=== PATIENT | male | born 2005 | race Caucasian/White ===

== ENCOUNTER 2024-09-09 00:58 | Inpatient (IN) ==
[2024-09-09 01:25] LABS: Basophils # (auto) 0.04 K/uL (0.00-0.20); Basophils % (auto) 0.5 %; Eosinophils # (auto) 0.09 K/uL (0.00-0.50); Eosinophils % (auto) 1.2 %; Hematocrit (blood only) 43.4 % (42.0-52.0); Hemoglobin 15.6 g/dl (14.0-18.0); Immature Granulocytes # (auto) 0.02 K/uL (0.01-0.20); Immature Granulocytes % (auto) 0.3 %; Lymphocytes # (auto) 1.81 K/uL (1.20-3.40); Mean Corpuscular Hemoglobin 29.9 pg (25.0-34.0); Mean Corpuscular Hgb Conc 35.9 g/dL (32.0-36.0); Mean Corpuscular Volume 83.3 fL (80.0-100.0); Mean Platelet Volume 10.2 fL (9.4-12.4); Monocytes # (auto) 0.35 K/uL (0.11-0.59); Monocytes % (auto) 4.6 %; Neutrophils # (auto) 5.23 K/uL (1.40-6.50); Neutrophils % (auto) 69.4 %; Platelet Count 275 K/uL (130-400); RDW Coefficient of Variation 11.4 % (11.5-14.5); RDW Standard Deviation 34.5 fL (36.4-46.3); Red Blood Count 5.21 M/uL (4.70-6.10); White Blood Count 7.54 K/ul (4.8-10.8)
[2024-09-09 01:41] LABS: Albumin Globulin Ratio 1.6 (0.9-2); BUN Creatinine Ratio 13.3 (10-20); Bilirubin,Total 1.3 mg/dl (0.2-1.0); Calcium 9.7 mg/dl (8.6-10.3); Creatinine Clr Calc Pharmacy 88.3 ml/min; Globulin 3.1 gm/dl (2.5-4.0); Potassium 3.4 mmol/L (3.5-5.1); Total Protein 8.1 gm/dl (6.0-8.3)
[2024-09-09 01:43] LABS: Appearance Urine Clear (Clear); Bilirubin Urine Negative (Negative); Blood Urine Negative (Negative); Color Urine Yellow; Glucose Urine UA Negative (Negative); Ketones Urine 2+ (Negative); Leukocyte Esterase Urine Negative (Negative); Nitrite Urine Negative (Negative); Protein Urine Negative (Negative); Specific Gravity Urine 1.016 (1.000-1.030); Urobilinogen Urine Negative (Negative); pH Urine 5.5 (4.5-7.5)
[2024-09-09 01:56] LABS: Thyroid Stimulating Hormone 1.483 uIu/ml (0.300-4.500)
[2024-09-09 02:01] LABS: Acetaminophen < 3 ug/ml (10-30); Amphetamines+Metham, Urine Neg (Neg); Barbiturates, Urine Neg (Neg); Benzodiazepine, Urine Neg (Neg); Cocaine, Urine Neg (Neg); Fentanyl, Urine Neg (Neg); MDMA (Ecstacy), Urine Neg (Neg); Marijuana, Urine Pos (Neg); Methadone, Urine Neg (Neg); Opiate, Urine Neg (Neg); Phencyclidine, Urine Neg (Neg); Salicylate < 3.0 mg/dl (3.0-30)
--- NOTE | 2024-09-09 03:01 | Emergency Department Note ---
Impression & Plan Mood disorder, Suicidal ideation ED Provider Note NAME: THOMAS SMALLS AGE: 18 SEX: Male INFORMANT: Patient ED PROVIDER(S): Hugo Nice MD CHIEF COMPLAINT: Mental health evaluation PLAN: Disposition: Admitted to [facility]. mental health Outpatient prescription management: none Referral: None MEDICAL DECISION MAKING: Patient presented on a box B302 due to suicidal statements to police. Patient was tearful on arrival. He has been calm and cooperative. Laboratory testing revealed unremarkable CBC and chemistry panel except for a subtle hypokalemia. Tylenol and salicylate levels were negative. Alcohol level negative. Patient's UDS reveals marijuana. No other drugs of abuse noted. Patient was evaluated by the ED psychiatric complex case manager. Case management and myself both expressed significant concerns on the patient's mood and current mental health state with his suicidality. He is calm and cooperative and voluntary for psychiatric evaluation. Given his voluntary nature and cooperativity the patient is willing to sign in for formal evaluation. 302 was denied. 3 [facility]. mental health was consulted. Patient was evaluated and admitted to 3 [facility]. for voluntary inpatient psychiatric mental health treatment. Care/management discussed with: ED psychiatric complex case manager Level of care consideration(s): After review of the information above and other included data, I feel the patient requires escalation of care to admission Triage Nursing notes: reviewed and agree them. Vital Signs: reviewed and remarkable for no significant abnormalities Additional History obtained from: [facility]E Chronic Medical/Social Conditions affecting care: Depression Prior/ Outside/ External records reviewed: none Differential Diagnosis: Mood disorder, infection, hypoglycemia, electrolyte abnormalities, cardiac sources, intracerebral event, toxicologic, trauma, neurologic, as well as other pathologies. Diagnostics, independently interpreted by me: ECG: none Cardiac Monitoring: none Medical decision rules: none Imaging studies: Deferred HPI: 18 year old Male arrives for a mental health evaluation. Patient notes a history of anxiety and depression. He does have outpatient providers and has been through intensive inpatient therapy as well as partial hospitalization. He notes no specific trigger but has had thoughts of self-harm. He did admit to plan of hanging himself to police. Patient expressed thoughts of self-harm on the suicide hotline and crisis was called. Patient had left his residence and was pulled over by [facility] for reported minor moving violation. The officers were made aware of his crisis issue and discussed this with the patient. He admitted to plan of hanging. A 302 box B was done and the patient was brought to the emergency department for mental health evaluation. Patient notes poor academic performance. Denies any specific stressors that triggered this episode tonight however does note that his outpatient group therapy was abruptly changed and that was upsetting to him. Patient denies any significant alcohol or drug use. Denies any recent medical illness. Patient does admit to smoking heavily and states he does have a chronic cough with this chest tightness. Patient notes he is sleeping well and energy level feels normal to him. Pt denies LOC, headache, fevers, chills, diaphoresis, visual changes, neck pain, chest pain, breathing difficulties, nausea, vomiting, abdominal pain, back pain, melena, hematochezia, urinary symptoms, numbness, weakness, lymphadenopathy, rash, or other complaints. PAST MEDICAL HISTORY: See Below, anxiety, depression PAST SURGICAL HISTORY: See Below, SOCIAL HISTORY: See Below, denies alcohol use. [facility] MEDICATIONS: See Below ALLERGIES: See Below VITALS: See Below PHYSICAL EXAMINATION: GENERAL: Awake, alert, well-appearing, in no distress HENT: Normocephalic, atraumatic. Oropharynx unremarkable. EYES: Normal conjunctiva. Sclera non-icteric. NECK: Inspection normal. Non-tender. Supple. No nuchal rigidity. FROM. No masses. RESPIRATORY: Clear to auscultation. No wheezes. No rales. Normal respiratory effort. CARDIAC: Normal rate. Normal rhythm. No murmurs. No rubs. Extremities warm and well perfused. Pulses equal. No JVD. GI: Soft, non-distended. No tenderness to palpation. No rebound or guarding. No masses. RECTAL: Deferred. MUSCULOSKELETAL: Atraumatic. Chest examination reveals no tenderness. The back is symmetrical on inspection without obvious abnormality. There is no CVA tenderness to palpation. No joint edema. LOWER EXTREMITIES: Calves are equal size bilaterally and non-tender. No edema. No discoloration. NEURO: Normal sensorium. No sensory or motor deficits noted. SKIN: No rash or jaundice noted. PSYCH:Depressed mood, flat affect. Positive SI. No hallucinations or delusions. PROCEDURES: none CRITICAL CARE: none OBSERVATION NOTE: none Past Med/Surg History Problem List (Updated 09/09/24 @ 03:01 by Hugo Nice MD) Suicidal ideation (Acute) Mood disorder (Acute) Social History Smoking Status: Current every day smoker Tobacco Type: E-cigarettes / Vaping Preferred Language: Malay Communication Ability: Effective Programming Manager Required: No Beliefs That Will Affect Care: None Feels Safe at Home: Yes Gender Identity: Male Assistive Devices: None Allergies Allergies Allergy/AdvReac Type Severity Reaction Status Date / Time No Known Allergies Allergy Unverified 09/09/24 02:42 Home Meds Home Medications Medication Instructions Recorded Confirmed Inderal LA 10 mg PO BID PRN Anxiety 09/09/24 09/09/24 Remeron 15 mg PO HS 09/09/24 09/09/24 clonazepam 0.25 mg disintegrating 0.25 mg PO BID PRN Anxiety 09/09/24 09/09/24 tablet escitalopram oxalate 20 mg tablet 20 mg PO DAILY 09/09/24 09/09/24 (Lexapro) Results & Data (ED) Vital Signs Vital Signs - 24 hr 09/09/24 00:59 09/09/24 01:06 09/09/24 02:59 Temperature 36.8 C 36.8 C Temperature Source Oral Oral Pulse Rate 69 Pulse Rate [Finger] 69 77 Pulse Rhythm [Finger] Regular Regular Pulse Strength [Finger] Normal Respiratory Rate 20 20 18 Respiratory Effort / Characteristics Non-Labored Spontaneous Respiratory Depth Normal Normal Normal Respiratory Pattern Regular Blood Pressure 123/80 Blood Pressure [Right Arm] 123/80 137/81 Blood Pressure Mean 94 Blood Pressure Mean [Right Arm] 94 99 Pulse Oximetry 99 99 97 Oxygen Delivery Method Room Air Room Air Room Air Sepsis Recent Fever Within 48 Hours No Sepsis New/Unexplained Change in Mental Status No Sepsis Action Taken by Nursing No Action Required Laboratory Data 09/09/24 01:00 09/09/24 01:00 Lab Results 09/09/24 Range/Units 01:00 WBC 7.54 (4.8-10.8) K/ul RBC 5.21 (4.70-6.10) M/uL Hgb 15.6 (14.0-18.0) g/dl Hct 43.4 (42.0-52.0) % MCV 83.3 (80.0-100.0) fL MCH 29.9 (25.0-34.0) pg MCHC 35.9 (32.0-36.0) g/dL RDW Std Deviation 34.5 L (36.4-46.3) fL RDW Coeff of Umm 11.4 L (11.5-14.5) % Plt Count 275 (130-400) K/uL MPV 10.2 (9.4-12.4) fL Immature Gran % (Auto) 0.3 % Neut % (Auto) 69.4 % Lymph % (Auto) 24.0 % [place] % (Auto) 4.6 % Eos % (Auto) 1.2 % Baso % (Auto) 0.5 % Neut # (Auto) 5.23 (1.40-6.50) K/uL Lymph # (Auto) 1.81 (1.20-3.40) K/uL [place] # (Auto) 0.35 (0.11-0.59) K/uL Eos # (Auto) 0.09 (0.00-0.50) K/uL Baso # (Auto) 0.04 (0.00-0.20) K/uL Immature Gran # (Auto) 0.02 (0.01-0.20) K/uL Sodium 138 (136-145) mmol/L Potassium 3.4 L (3.5-5.1) mmol/L Chloride 101 (98-107) mmol/L Carbon Dioxide 25 (21-32) mmol/L Anion Gap 12 H (3-11) BUN 16 (6-23) mg/dl Creatinine 1.20 (0.6-1.4) mg/dl Est Cr Clr Drug Dosing 88.3 ml/min eGFR 88.79 BUN/Creatinine Ratio 13.3 (10-20) Glucose 104 H (70-99(Fasting)) mg/dl Calcium 9.7 (8.6-10.3) mg/dl Total Bilirubin 1.3 H (0.2-1.0) mg/dl AST 18 (13-39) U/L ALT 10 (7-52) U/L Alkaline Phosphatase 44 (34-104) U/L Total Protein 8.1 (6.0-8.3) gm/dl Albumin 5.0 (3.4-5.0) gm/dl Globulin 3.1 (2.5-4.0) gm/dl Albumin/Globulin Ratio 1.6 (0.9-2) TSH 1.483 (0.300-4.500) uIu/ml Urine Color Yellow Urine Appearance Clear (Clear) Urine pH 5.5 (4.5-7.5) Ur Specific [place] 1.016 (1.000-1.030) Urine Protein Negative (Negative) Urine Glucose (UA) Negative (Negative) Urine Ketones 2+ H (Negative) Urine Blood Negative (Negative) Urine Nitrite Negative (Negative) Urine Bilirubin Negative (Negative) Urine Urobilinogen Negative (Negative) Ur Leukocyte Esterase Negative (Negative) Urine Comment Salicylates < 3.0 L (3.0-30) mg/dl Urine Opiates Screen Neg (Neg) Ur Methadone, Qual Neg (Neg) Urine Fentanyl Screen Neg (Neg) Acetaminophen < 3 L (10-30) ug/ml Urine Barbiturates Neg (Neg) Ur Phencyclidine (PCP) Neg (Neg) U Amphetamin/Meth Scrn Neg (Neg) MDMA (Ecstasy) Screen Neg (Neg) U Benzodiazepines Scrn Neg (Neg) Ur Cocaine Metabolite Neg (Neg) U Marijuana (THC) Screen Pos H (Neg) Ethyl Alcohol mg/dL < 10.0 (<10.0) mg/dl SARS-CoV-2, RNA, NAAT NEGATIVE (NEGATIVE) Administered Medications Discontinued Medications Nicotine (Nicotine 14 Mg/24 Hr Patch) 1 patch TD NOW STA Stop: 09/09/24 02:51 Last Admin: 09/09/24 03:08 Dose: Not Given Documented By: CHALO Nicotine Polacrilex (Nicotine Polacrilex 2 Mg Gum) 1 piece MT Q2H PRN PRN Reason: Titration Stop: 10/09/24 03:01 Last Admin: 09/09/24 03:10 Dose: 1 piece Documented By: CHALO Discharge Plan Visit Data Chief Complaint: Mental Health Evaluation Stated Complaint: MHE ED Provider: Hugo Nice Discharge Problem: Mood disorder, Suicidal ideation Patient Disposition: Admitted As Inpatient Condition: Good Discharge Instructions Interventions: ED Discharge Assessment Last Done: 09/09/24 05:02
[2024-09-09] MEDS: NICOTINE 14 MG/24 HR PATCH TD STA (03:08)
[2024-09-09] MEDS: NICOTINE POLACRILEX 2 MG GUM MT PRN ×2 (03:10→09:42)
[2024-09-09] MEDS ORDERED: hydrOXYzine HCl 25 MG TAB PO PRN ×2 (05:11)
[2024-09-09] MEDS ORDERED: ALUMINUM/MAGNESIUM SUSP 30 ML UDC PO PRN (05:11)
[2024-09-09] MEDS ORDERED: ACETAMINOPHEN 325 MG TAB PO PRN (05:11)
[2024-09-09] MEDS ORDERED: MAGNESIUM HYDROXIDE SUSP 30 ML UDC PO PRN (05:11)
[2024-09-09] MEDS ORDERED: SODIUM CHLORIDE 0.65% NA SOLN 45 ML (OCEAN) PRN (05:11)
[2024-09-09] MEDS ORDERED: BISMUTH SUBSALICYLATE 262 MG CHEW PO PRN (05:11)
[2024-09-09] MEDS ORDERED: clonazePAM 0.25 MG OD TAB PO PRN (05:19)
[2024-09-09] MEDS ORDERED: PROPRANOLOL HCL 10 MG TAB PO PRN ×2 (05:21→05:33)
[2024-09-09] MEDS: ESCITALOPRAM OXALATE 20 MG TAB PO SCH (09:42)
--- NOTE | 2024-09-09 15:57 | History & Physical ---
Date of Service September 09, 2024 Impression / Recommendations Impression THOMAS SMALLS is a 18-year-old M who currently lives in alone, has a history of anxiety, depression, and was admitted on 09/09/24 04:20 on a 201 voluntary commitment for suicidal ideation. Presentation consistent with generalized anxiety disorder with panic attacks and major depressive disorder. We will continue to clarify diagnosis and considering OCD and BPD. Presents with recurrent suicidal ideation in the context of depressive episode, ruminative anxiety, escalating stressors, social isolation and lack of community. He presents partial benefit from his scheduled escitalopram and there is concerns for medication nonadherence. Labs reviewed: CBC, CMP, blood alcohol unremarkable; UA positive for 2+ ketones; UDS positive for THC. Discussed plan to start adjunct low-dose aripiprazole for depression a nd anxiety treatment; medication side effects and adverse effects discussed with patient and agreeable. He would benefit from continued cognitive behavioral therapy and intensive outpatient program referral. Overall, I spent a total of 70 minutes with this case including review of chart records, nursing report, review of lab work, direct evaluation of the patient at bedside, counseling the patient, multidisciplinary team meeting, orders, and documentation in the electronic health record. (1) Suicidal ideation: (2) Racing thoughts: (3) Isolation (social): (4) Generalized anxiety disorder with panic attacks: (5) MDD (major depressive disorder), recurrent episode: Plan 09/09/2024:The patient was admitted to the [facility] ([facility] mental [facility] unit) on q15 min checks (behavioral with suicide precautions) for safety. The patient will participate in group, recreational, and milieu therapies and will be offered additional individual and family sessions as clinically appropriate. Start aripiprazole 5 mg at bedtime Continue home escitalopram 20 mg daily, clonazepam 0.25 mg twice daily as needed, propranolol 10 mg twice daily as needed Reduce home mirtazapine to 7.5 mg at bedtime Questionnaires: James borderline personality screener, Y-BOCS, [id number] Labs: A1c, fasting lipid, vitamin D, vitamin B12 Inventory Assets Strengths: fair self esteem, intelligent Needs: community support, medicaton adherence Suicide Risk Level Suicide Risk Level: High-Moderate (q15 min suicide checks) Risk Factors Assessment Male: Yes : Yes Do You Have Access To A Gun?: No Health Problems: No Mental Health Diagnoses: Yes Substance Use Disorders: No Previous Attempt: No Family History of Suicide: No Previous Psychiatric Hospitalization: Yes Hopelessness: Yes Protective Factors Assessment Mormonism Beliefs: No : No Responsible for Young Children: No Employed: No Stable Relationships: Yes Supportive Family: Yes Good Rapport with Provider: Yes Absence of Any Risk Factors Above: No Psychiatric History Identifying Data THOMAS SMALLS is a 18-year-old M who currently lives in alone, has a history of anxiety, depression, and was admitted on 09/09/24 04:20 on a 201 voluntary commitment for suicidal ideation. Chief Complaint "Stressful couple weeks" History of Present Illness Patient reports increased stress from school responsibilities and graduating from his intensive outpatient program. Reports an increase in racing thoughts with shortness of breath and feelings of doom. He called crisis stating suicidal thoughts with plan to hang self and was brought in by police. He decided to sign himself in for "stabilization". Reports a history of suicidality and depression. The depression for started in spring of . He reports recent low energy, social isolation, excess worries. He reports a history of major depressive episodes and possible past hypomania. Denies past auditory or visual hallucinations. Denies a history of childhood abuse. Reports IOP has been helpful for accountability, to check-in, and support. Reports recently being more isolated because all his roommates moved out. Reports Lexapro was his first medication and was initially helpful. Patient complains of depressed mood, unable to enjoy activities, forgetfulness, change in appetite, excessive guilt, increased racing thoughts, increased irritability, crying spells, excessive worry, anxiety attacks, avoidance, hopelessness, worthlessness. Complains of SI thoughts daily and last occurred yesterday. Denies current SI. Has considered plan of hanging himself; denies that this method is readily available. Original plan to hang himself was supposed to be today. Thinking about his family stops him from killing himself. Complains of hopelessness and worthlessness. Reports past self-harm by cutting however denies past suicide attempts. Denies access to firearms. Denies past drug or alcohol treatment or abuse. Smokes marijuana every day on/off for 2 years. Drivers for use include relaxation. denies other drug use or problem. No tobacco history. Drinks 2 coffees a day. 1 past psychiatric hospitalization in [place] in September 2023. Multiple past intensive outpatient programs. Past psychiatric medications include Lexapro (currently 20 mg), mirtazapine (15 mg), clonazepam, propranolol. Reports stable childhood and denies emotional neglect, emotional/physical/sexual abuse. No history of divorce in parents. Family psychiatric history significant for Anxiety and depression in mother who takes Lexapro 10 mg. Social history: Patient lives alone in a house and has access to transportation. Can return home after discharge and has no housing concerns. Patient is a [employer] Senior studying [employer]. Currently single and not in a relationship or sexually active. Heterosexual orientation. No past marriages or children. Grew up near [place]. Mother was a teacher and father was a glass cutter helper. Has 2 younger siblings. Past arrests. No current legal problems. Not spiritual. Exercises regularly. Does not eat healthy. Past Psychiatric History Current Psychiatric Diagnosis: Anxiety and depression Do You Have Access To A Gun?: No History of Previous Suicide Attempt: No Allergies Allergy/AdvReac Type Severity Reaction Status Date / Time No Known Allergies Allergy Unverified 09/09/24 02:42 Home Medications Medication Instructions Recorded Confirmed Type Inderal LA 10 mg PO BID PRN Anxiety 09/09/24 09/09/24 History Remeron 15 mg PO HS 09/09/24 09/09/24 History clonazepam 0.25 mg disintegrating 0.25 mg PO BID PRN Anxiety 09/09/24 09/09/24 History tablet escitalopram oxalate 20 mg tablet 20 mg PO DAILY 09/09/24 09/09/24 History (Lexapro) Family History Family History of: Depression and Anxiety Family Mental Health History Comment: Mother Alcohol History Hx of Alcohol Use Over the Past 12 Months: Yes (socially every other month. 5+ beers per occasion) AUDIT Total Score: 5 Smoking Use Have You Smoked or Used Tobacco Products in the Last 30 Days: Yes tobacco type: e-cigarettes Smoking Status: Current every day smoker Substance History Hx of Prescription Med Misuse Over the Past 12 Months: No Hx of Over the Counter Med Misuse Over the Past 12 Months: No Hx of Inhalent Misuse Over the Past 12 Months: No Hx of Organic Substance Use Over the Past 12 Months: Yes (Frequent marijuana use) Hx of Illegal Substances/Street Drug Use Over Past 12 Months: No Problems as a Result of Past Substance Use: None Identified Personal History Living Arrangements: Apartment Living Arrangements Comments: I have roommates 4 in total. Highest Grade Completed: High School Graduate and Some College Highest Grade Completed Comment: Hung at [employer] Marital Status: Single Number Of Children: 0 Beliefs That Will Affect Care: None Patient History Social History Smoking Status: Current every day smoker Tobacco Type: E-cigarettes / Vaping Preferred Language: Moroccan Communication Ability: Effective Multifocal Lens Assembler Required: No Beliefs That Will Affect Care: None Feels Safe at Home: Yes Gender Identity: Male Assistive Devices: None Physical Exam Mental Examination: Appearance: Unkempt Eye Contact: Fleeting Contact Motor Behavior: Unremarkable Speech: Normal Mood: Calm and Anxious Affect: Calm and Constricted Thought Process: Intact Thought Content: Racing Hallucinations: None Insight: Fair (to limited) Judgement: Fair (to limited) Vital Signs (Past 24 Hours): Last Vital Signs Temp 37.0 C 09/09/24 05:59 Pulse 66 09/09/24 05:59 Resp 18 09/09/24 05:59 BP 123/78 09/09/24 05:59 Pulse Ox 100 09/09/24 05:59 O2 Del Method Room Air 09/09/24 05:59 Exam Statement: A physical exam was performed in the ED for the purposes of medical clearance. I accept that physical as correct and adequate for the purposes of the inpatient physical exam. Results & Data ([facility]) Laboratory Results Laboratory Results - last 24 hr 09/09/24 01:00 WBC 7.54 RBC 5.21 Hgb 15.6 Hct 43.4 MCV 83.3 MCH 29.9 MCHC 35.9 RDW Std Deviation 34.5 L RDW Coeff of Umm 11.4 L Plt Count 275 MPV 10.2 Immature Gran % (Auto) 0.3 Neut % (Auto) 69.4 Lymph % (Auto) 24.0 [place] % (Auto) 4.6 Eos % (Auto) 1.2 Baso % (Auto) 0.5 Neut # (Auto) 5.23 Lymph # (Auto) 1.81 [place] # (Auto) 0.35 Eos # (Auto) 0.09 Baso # (Auto) 0.04 Immature Gran # (Auto) 0.02 Sodium 138 Potassium 3.4 L Chloride 101 Carbon Dioxide 25 Anion Gap 12 H BUN 16 Creatinine 1.20 Est Cr Clr Drug Dosing 88.3 eGFR 88.79 BUN/Creatinine Ratio 13.3 Glucose 104 H Calcium 9.7 Total Bilirubin 1.3 H AST 18 ALT 10 Alkaline Phosphatase 44 Total Protein 8.1 Albumin 5.0 Globulin 3.1 Albumin/Globulin Ratio 1.6 TSH 1.483 Urine Color Yellow Urine Appearance Clear Urine pH 5.5 Ur Specific [place] 1.016 Urine Protein Negative Urine Glucose (UA) Negative Urine Ketones 2+ H Urine Blood Negative Urine Nitrite Negative Urine Bilirubin Negative Urine Urobilinogen Negative Ur Leukocyte Esterase Negative Urine Comment Salicylates < 3.0 L Urine Opiates Screen Neg Ur Methadone, Qual Neg Urine Fentanyl Screen Neg Acetaminophen < 3 L Urine Barbiturates Neg Ur Phencyclidine (PCP) Neg U Amphetamin/Meth Scrn Neg MDMA (Ecstasy) Screen Neg U Benzodiazepines Scrn Neg Ur Cocaine Metabolite Neg U Marijuana (THC) Screen Pos H U Marijuana THC Carboxy Pending Drug Screen Comment Pending Ethyl Alcohol mg/dL < 10.0 SARS-CoV-2, RNA, NAAT NEGATIVE Current Inpatient Medications Current Inpatient Medications: Current Inpatient Medications Acetaminophen (Acetaminophen 325 Mg Tab) 650 mg PO Q4H PRN PRN Reason: Headache or Minor Fever Stop: 10/09/24 05:10 Al Hydrox/Mg Hydrox/Simethicone (Aluminum/Magnesium Susp 30 Ml Udc) 30 ml PO Q4H PRN PRN Reason: GI Upset Stop: 10/09/24 05:10 Aripiprazole (Aripiprazole 5 Mg Tab) 5 mg PO HS VINNIE Stop: 10/09/24 21:59 Bismuth Subsalicylate (Bismuth Subsalicylate 262 Mg Chew) 2 tab PO Q30M PRN PRN Reason: Loose Stool/Diarrhea Stop: 10/09/24 05:10 Clonazepam (Clonazepam 0.25 Mg Od Tab) 0.25 mg PO BID PRN PRN Reason: Anxiety Stop: 10/09/24 05:18 Escitalopram Oxalate (Escitalopram Oxalate 20 Mg Tab) 20 mg PO DAILY VINNIE Stop: 10/09/24 08:59 Last Admin: 09/09/24 09:42 Dose: 20 mg Hydroxyzine HCl (Hydroxyzine Hcl 25 Mg Tab) 50 mg PO HSZ PRN PRN Reason: Insomnia Stop: 10/09/24 05:10 Hydroxyzine HCl (Hydroxyzine Hcl 25 Mg Tab) 25 mg PO Q4H PRN PRN Reason: Anxiety Stop: 10/09/24 05:10 Magnesium Hydroxide (Magnesium Hydroxide Susp 30 Ml Udc) 30 ml PO DAILY PRN PRN Reason: Constipation Stop: 10/09/24 05:10 Mirtazapine (Mirtazapine Tab 15 Mg Tab) 7.5 mg PO HS VINNIE Stop: 10/09/24 21:59 Nicotine Polacrilex (Nicotine Polacrilex 2 Mg Gum) 2 piece MT Q2H PRN PRN Reason: Nicotine Withdrawal Symptoms Stop: 10/09/24 05:17 Last Admin: 09/09/24 13:27 Dose: 2 piece Propranolol HCl (Propranolol Hcl 10 Mg Tab) 10 mg PO BID PRN PRN Reason: Anxiety Stop: 10/09/24 08:59 Sodium Chloride (Sodium Chloride 0.65% Na Soln 45 Ml (White)) 1 - 2 sprays NA PRN PRN PRN Reason: Nasal Dryness/Congestion Stop: 10/09/24 05:10
[2024-09-09] MEDS: MIRTAZAPINE TAB 15 MG TAB PO SCH (21:21)
[2024-09-09] MEDS: ARIPiprazole 5 MG TAB PO SCH (21:21)
[2024-09-09] MEDS ORDERED: MIRTAZAPINE TAB 15 MG TAB PO SCH (22:00)
[2024-09-10 07:54] LABS: Chol HDL Ratio 4.4 (0-5)
[2024-09-10 08:14] LABS: Estimated Average Glucose 91 mg/dl; Hemoglobin A1C 4.8 % (4.5-5.6)
[2024-09-10] MEDS: CYANOCOBALAMIN (B-12) 500 MCG TABLET PO SCH (10:37)
[2024-09-10] MEDS: CHOLECALCIFEROL 125 MCG (5,000 UNITS) TAB PO SCH (10:37)
[2024-09-10] MEDS: ERGOCALCIFEROL 1250 MCG (50,000 UNITS) CAP PO SCH (10:47)
--- NOTE | 2024-09-10 13:23 | Psychiatric Progress Note ---
Date of Service September 10, 2024 Impression / Recommendations Impression THOMAS SMALLS is a 18-year-old M who currently lives in alone, has a history of anxiety, depression, and was admitted on 09/09/24 04:20 on a 201 voluntary commitment for suicidal ideation. Presentation consistent with generalized anxiety disorder with panic attacks and major depressive disorder. Presents with recurrent suicidal ideation in the context of depressive episode, ruminative anxiety, escalating stressors, social isolation and lack of community. He presents partial benefit from his scheduled escitalopram and there is concerns for medication nonadherence. A:Patient presenting some improvement in anxious ruminations and suicidality. Introduced the thought mood behavior cycle of cognitive behavioral therapy. His recent questionnaires reveal partial symptoms of obsessive-compulsive disorder and does not meet full criteria for diagnosis, severe anxiety on HERACLIO-7, and cluster B symptomatology with past efforts to hurt self to relieve negative emotions, increased moodiness, and trouble with identity formation. Labs resulted in show severely deficient vitamin D and mildly deficient vitamin B12 levels. He is tolerating aripiprazole well with no voiced side effects. Overall, I spent a total of 40 minutes with this case including review of chart records, nursing report, review of lab work, direct evaluation of the patient at bedside, counseling the patient, multidisciplinary team meeting, orders, and documentation in the electronic health record. (1) Suicidal ideation: (2) Racing thoughts: (3) Isolation (social): (4) Generalized anxiety disorder with panic attacks: (5) MDD (major depressive disorder), recurrent episode: (6) Cluster B personality disorder: (7) Vitamin D deficiency: (8) Vitamin B12 deficiency: Plan 09/10/2024: Start high dose of vitamin D 2 supplementation weekly Start vitamin D 125 mcg daily Start vitamin B12 500 mcg daily 09/09/2024:The patient was admitted to the [facility] ([facility] mental health unit) on q15 min checks (behavioral with suicide precautions) for safety. The patient will participate in group, recreational, and milieu therapies and will be offered additional individual and family sessions as clinically appropriate. Start aripiprazole 5 mg at bedtime Continue home escitalopram 20 mg daily, clonazepam 0.25 mg twice daily as needed, propranolol 10 mg twice daily as needed Reduce home mirtazapine to 7.5 mg at bedtime Questionnaires: James borderline personality screener, Y-BOCS, HERACLIO-7 Labs: A1c, fasting lipid, vitamin D, vitamin B12 Inventory Assets Strengths: fair self esteem, intelligent Needs: community support, medicaton adherence Suicide Risk Level Suicide Risk Level: High-Moderate (q15 min suicide checks) Risk Factors Assessment Male: Yes : Yes Do You Have Access To A Gun?: No Health Problems: No Mental Health Diagnoses: Yes Substance Use Disorders: No Previous Attempt: No Family History of Suicide: No Previous Psychiatric Hospitalization: Yes Hopelessness: Yes Protective Factors Assessment Yazdanism Beliefs: No : No Responsible for Young Children: No Employed: No Stable Relationships: Yes Supportive Family: Yes Good Rapport with Provider: Yes Absence of Any Risk Factors Above: No Interval History Identifying Information THOMAS SMALLS is a 18-year-old M who currently lives in alone, has a history of anxiety, depression, and was admitted on 09/09/24 04:20 on a 201 voluntary commitment for suicidal ideation. 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 Took all medications. On interview he reports feeling rested. Says that he is less anxiety here due to increase structure and social interactions. Reports a recent lack of appetite. Confirms adequate hydration. Says that he does better with the routine and sleeping on time and notices he has more energy the next day. We reflect on his recent disappointment about getting a B in a class and he reports not doing as well at the beginning of school so he is trying to catch up. Reports a plan to go home for the summer and spend time with his family and feels it will be a good environment for him. Denies SI today. Physical Exam Mental Examination Appearance: Unkempt Eye Contact: Fleeting Contact Motor Behavior: Unremarkable Speech: Normal Mood: Calm and Anxious Affect: Calm and Constricted Thought Process: Intact Thought Content: Racing Hallucinations: None Insight: Fair (to limited) Judgement: Fair (to limited) Vital Signs (Past 24 Hours) Last Vital Signs Temp 37 C 09/10/24 06:23 Pulse 70 09/10/24 06:25 Resp 16 09/10/24 06:23 BP 99/61 L 09/10/24 06:25 Pulse Ox 100 09/09/24 05:59 O2 Del Method Room Air 09/09/24 05:59 Results & Data ([facility]) Laboratory Results Laboratory Results - last 24 hr 09/10/24 06:52 Estimat Average Glucose 91 Hemoglobin A1c 4.8 Triglycerides 72 Cholesterol 172 LDL Cholesterol, Calc 119 VLDL Cholesterol, Calc 14 HDL Cholesterol 39 Cholesterol/HDL Ratio 4.4 Vitamin B12 147 L 25-OH Vitamin D Total < 7.0 L Current Inpatient Medications Current Inpatient Medications: Current Inpatient Medications Acetaminophen (Acetaminophen 325 Mg Tab) 650 mg PO Q4H PRN PRN Reason: Headache or Minor Fever Stop: 10/09/24 05:10 Al Hydrox/Mg Hydrox/Simethicone (Aluminum/Magnesium Susp 30 Ml Udc) 30 ml PO Q4H PRN PRN Reason: GI Upset Stop: 10/09/24 05:10 Aripiprazole (Aripiprazole 5 Mg Tab) 5 mg PO HS VINNIE Stop: 10/09/24 21:59 Last Admin: 09/09/24 21:21 Dose: 5 mg Bismuth Subsalicylate (Bismuth Subsalicylate 262 Mg Chew) 2 tab PO Q30M PRN PRN Reason: Loose Stool/Diarrhea Stop: 10/09/24 05:10 Clonazepam (Clonazepam 0.25 Mg Od Tab) 0.25 mg PO BID PRN PRN Reason: Anxiety Stop: 10/09/24 05:18 Cyanocobalamin (Cyanocobalamin (B-12) 500 Mcg Tablet) 500 mcg PO QAM VINNIE Stop: 10/10/24 09:54 Last Admin: 09/10/24 10:37 Dose: 500 mcg Ergocalciferol (Ergocalciferol 1250 Mcg (50,000 Units) Cap) 1,250 mcg PO Q7D@0900 VINNIE Stop: 10/10/24 09:59 Last Admin: 09/10/24 10:47 Dose: 1,250 mcg Escitalopram Oxalate (Escitalopram Oxalate 20 Mg Tab) 20 mg PO DAILY VINNIE Stop: 10/09/24 08:59 Last Admin: 09/10/24 09:10 Dose: 20 mg Hydroxyzine HCl (Hydroxyzine Hcl 25 Mg Tab) 50 mg PO HSZ PRN PRN Reason: Insomnia Stop: 10/09/24 05:10 Hydroxyzine HCl (Hydroxyzine Hcl 25 Mg Tab) 25 mg PO Q4H PRN PRN Reason: Anxiety Stop: 10/09/24 05:10 Magnesium Hydroxide (Magnesium Hydroxide Susp 30 Ml Udc) 30 ml PO DAILY PRN PRN Reason: Constipation Stop: 10/09/24 05:10 Mirtazapine (Mirtazapine Tab 15 Mg Tab) 7.5 mg PO HS VINNIE Stop: 10/09/24 21:59 Last Admin: 09/09/24 21:21 Dose: 7.5 mg Nicotine Polacrilex (Nicotine Polacrilex 2 Mg Gum) 2 piece MT Q2H PRN PRN Reason: Nicotine Withdrawal Symptoms Stop: 10/09/24 05:17 Last Admin: 09/10/24 10:37 Dose: 2 piece Propranolol HCl (Propranolol Hcl 10 Mg Tab) 10 mg PO BID PRN PRN Reason: Anxiety Stop: 10/09/24 08:59 Sodium Chloride (Sodium Chloride 0.65% Na Soln 45 Ml ([place])) 1 - 2 sprays NA PRN PRN PRN Reason: Nasal Dryness/Congestion Stop: 10/09/24 05:10 Vitamin D (Cholecalciferol 125 Mcg (5,000 Units) Tab) 125 mcg PO QAM VINNIE Stop: 10/10/24 09:54 Last Admin: 09/10/24 10:37 Dose: 125 mcg Mental Health & Subst Abuse Tx Psychiatrist Name of Psychiatrist: [facility] Psychiatrist's Date Of Appointment With Psychiatric Provider: 09/05/24 Time of Appointment with Psychiatrist: 3 pm Therapist Name of Therapist: Alexander De Therapist's Date of Therapist Appointment: 09/12/24 and 09/14/24 Time of Therapist Appointment: 6 pm Post Discharge Appointments Primary Care Physician Name Of Family Doctor/PCP: REYMUNDO Other #1: Name of Aftercare Appointment: IOP Phone Number of Aftercare Appointment: [phone] Aftercare Appointment Comment: See if can sign up for IOP as step down from inpt tx.
[2024-09-11] MEDS: CETIRIZINE HCL 10 MG TABLET PO SCH (09:33)
--- NOTE | 2024-09-11 14:08 | Psychiatric Progress Note ---
Date of Service September 11, 2024 Impression / Recommendations Impression THOMAS SMALLS is a 18-year-old M who currently lives in alone, has a history of anxiety, depression, and was admitted on 09/09/24 04:20 on a 201 voluntary commitment for suicidal ideation. Presentation consistent with generalized anxiety disorder with panic attacks and major depressive disorder. Presents with recurrent suicidal ideation in the context of depressive episode, ruminative anxiety, escalating stressors, social isolation and lack of community. He presents partial benefit from his scheduled escitalopram and there is concerns for medication nonadherence. A:Patient presents an improvement in racing thoughts and anxious ruminations. Continues to deny suicidal ideation and is more future oriented. Having some sleep disruption and limited appetite however improving. Patient is currently establishing a plan for the summer. Overall, I spent a total of 40 minutes with this case including review of chart records, nursing report, review of lab work, direct evaluation of the patient at bedside, counseling the patient, multidisciplinary team meeting, orders, and documentation in the electronic health record. (1) Racing thoughts: (2) Isolation (social): (3) Generalized anxiety disorder with panic attacks: (4) MDD (major depressive disorder), recurrent episode: (5) Cluster B personality disorder: (6) Vitamin D deficiency: (7) Vitamin B12 deficiency: Plan 09/11/2024: Continue medications and treatment plan. 09/10/2024: Start high dose of vitamin D 2 supplementation weekly Start vitamin D 125 mcg daily Start vitamin B12 500 mcg daily 09/09/2024:The patient was admitted to the [facility] ([facility] mental health unit) on q15 min checks (behavioral with suicide precautions) for safety. The patient will participate in group, recreational, and milieu therapies and will be offered additional individual and family sessions as clinically appropriate. Start aripiprazole 5 mg at bedtime Continue home escitalopram 20 mg daily, clonazepam 0.25 mg twice daily as needed, propranolol 10 mg twice daily as needed Reduce home mirtazapine to 7.5 mg at bedtime Questionnaires: James borderline personality screener, Y-BOCS, HERACLIO-7 Labs: A1c, fasting lipid, vitamin D, vitamin B12 Inventory Assets Strengths: fair self esteem, intelligent Needs: community support, medicaton adherence Suicide Risk Level Suicide Risk Level: High-Moderate (q15 min suicide checks) Risk Factors Assessment Male: Yes : Yes Do You Have Access To A Gun?: No Health Problems: No Mental Health Diagnoses: Yes Substance Use Disorders: No Previous Attempt: No Family History of Suicide: No Previous Psychiatric Hospitalization: Yes Hopelessness: Yes Protective Factors Assessment Mormonism Beliefs: No : No Responsible for Young Children: No Employed: No Stable Relationships: Yes Supportive Family: Yes Good Rapport with Provider: Yes Absence of Any Risk Factors Above: No Interval History Identifying Information THOMAS MSALLS is a 18-year-old M who currently lives in alone, has a history of anxiety, depression, and was admitted on 09/09/24 04:20 on a 201 voluntary commitment for suicidal ideation. 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 Reports a decrease in anxious ruminations. Reports compared to his last hospitalization he is able to utilize skills he has obtained from his intensive outpatient therapy. Feels that he is able to relax more now. Denies side effects from Abilify. Presents a plan to work at [place] [employer] and will apply for internships the summer. 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 Reports having 2 to 5-year goals. Denies suicidal ideation. Physical Exam Mental Examination Appearance: Unkempt Eye Contact: Fleeting Contact Motor Behavior: Unremarkable Speech: Normal Mood: Calm and Anxious Affect: Calm and Constricted Thought Process: Intact Thought Content: Racing Hallucinations: None Insight: Fair (to limited) Judgement: Fair (to limited) Vital Signs (Past 24 Hours) Last Vital Signs Temp 36.7 C 09/11/24 06:30 Pulse 75 09/11/24 06:31 Resp 18 09/11/24 06:30 BP 140/78 09/11/24 06:31 Pulse Ox 100 09/09/24 05:59 O2 Del Method Room Air 09/09/24 05:59 Results & Data (U) Current Inpatient Medications Current Inpatient Medications: Current Inpatient Medications Acetaminophen (Acetaminophen 325 Mg Tab) 650 mg PO Q4H PRN PRN Reason: Headache or Minor Fever Stop: 10/09/24 05:10 Al Hydrox/Mg Hydrox/Simethicone (Aluminum/Magnesium Susp 30 Ml Udc) 30 ml PO Q4H PRN PRN Reason: GI Upset Stop: 10/09/24 05:10 Aripiprazole (Aripiprazole 5 Mg Tab) 5 mg PO HS [facility] Stop: 10/09/24 21:59 Last Admin: 09/10/24 21:20 Dose: 5 mg Bismuth Subsalicylate (Bismuth Subsalicylate 262 Mg Chew) 2 tab PO Q30M PRN PRN Reason: Loose Stool/Diarrhea Stop: 10/09/24 05:10 Cetirizine HCl (Cetirizine Hcl 10 Mg Tablet) 10 mg PO QAM VINNIE Stop: 10/11/24 09:14 Last Admin: 09/11/24 09:33 Dose: 10 mg Clonazepam (Clonazepam 0.25 Mg Od Tab) 0.25 mg PO BID PRN PRN Reason: Anxiety Stop: 10/09/24 05:18 Cyanocobalamin (Cyanocobalamin (B-12) 500 Mcg Tablet) 500 mcg PO QAM VINNIE Stop: 10/10/24 09:54 Last Admin: 09/11/24 08:44 Dose: 500 mcg Ergocalciferol (Ergocalciferol 1250 Mcg (50,000 Units) Cap) 1,250 mcg PO Q7D@0900 VINNIE Stop: 10/10/24 09:59 Last Admin: 09/10/24 10:47 Dose: 1,250 mcg Escitalopram Oxalate (Escitalopram Oxalate 20 Mg Tab) 20 mg PO DAILY VINNIE Stop: 10/09/24 08:59 Last Admin: 09/11/24 08:44 Dose: 20 mg Hydroxyzine HCl (Hydroxyzine Hcl 25 Mg Tab) 50 mg PO HSZ PRN PRN Reason: Insomnia Stop: 10/09/24 05:10 Hydroxyzine HCl (Hydroxyzine Hcl 25 Mg Tab) 25 mg PO Q4H PRN PRN Reason: Anxiety Stop: 10/09/24 05:10 Magnesium Hydroxide (Magnesium Hydroxide Susp 30 Ml Udc) 30 ml PO DAILY PRN PRN Reason: Constipation Stop: 10/09/24 05:10 Mirtazapine (Mirtazapine Tab 15 Mg Tab) 7.5 mg PO HS [facility] Stop: 10/09/24 21:59 Last Admin: 09/10/24 21:20 Dose: 7.5 mg Nicotine Polacrilex (Nicotine Polacrilex 2 Mg Gum) 2 piece MT Q2H PRN PRN Reason: Nicotine Withdrawal Symptoms Stop: 10/09/24 05:17 Last Admin: 09/11/24 13:50 Dose: 2 piece Propranolol HCl (Propranolol Hcl 10 Mg Tab) 10 mg PO BID PRN PRN Reason: Anxiety Stop: 10/09/24 08:59 Sodium Chloride (Sodium Chloride 0.65% Na Soln 45 Ml ([place])) 1 - 2 sprays NA PRN PRN PRN Reason: Nasal Dryness/Congestion Stop: 10/09/24 05:10 Vitamin D (Cholecalciferol 125 Mcg (5,000 Units) Tab) 125 mcg PO QAM VINNIE Stop: 10/10/24 09:54 Last Admin: 09/11/24 08:44 Dose: 125 mcg Mental Health & Subst Abuse Tx Psychiatrist Name of Psychiatrist: [facility] Psychiatrist's Date Of Appointment With Psychiatric Provider: 09/26/24 Time of Appointment with Psychiatrist: 3 pm Therapist Name of Therapist: Alexander De Therapist's Date of Therapist Appointment: 09/13/24 Time of Therapist Appointment: 3 pm Therapy Appointment Comment: Via Zoom consult with Alexander and then will resume IOP. Post Discharge Appointments Primary Care Physician Name Of Family Doctor/PCP: REYMUNDO Other #1: Name of Aftercare Appointment: IOP Phone Number of Aftercare Appointment: [phone] Aftercare Appointment Comment: See if can sign up for IOP as step down from inpt tx. #2: Name of Aftercare Appointment: [facility] Date of Aftercare Appointment: 09/14/24 Time of Aftercare Appointment: 1pm Aftercare Appointment Comment: Student Care will send link to [employer] email Contact Information Discharge Discharge Address: [address] [place] [address], [facility]
--- NOTE | 2024-09-12 09:18 | Discharge Summary ---
Date of Service September 12, 2024 History of Present Illness Patient reports increased stress from school responsibilities and graduating from his intensive outpatient program. Reports an increase in racing thoughts with shortness of breath and feelings of doom. He called crisis stating suicidal thoughts with plan to hang self and was brought in by police. He decided to sign himself in for "stabilization". Reports a history of suicidality and depression. The depression for started in spring of . He reports recent low energy, social isolation, excess worries. He reports a history of major depressive episodes and possible past hypomania. Denies past auditory or visual hallucinations. Denies a history of childhood abuse. Reports IOP has been helpful for accountability, to check-in, and support. Reports recently being more isolated because all his roommates moved out. Reports Lexapro was his first medication and was initially helpful. Patient complains of depressed mood, unable to enjoy activities, forgetfulness, change in appetite, excessive guilt, increased racing thoughts, increased irritability, crying spells, excessive worry, anxiety attacks, avoidance, hopelessness, worthlessness. Complains of SI thoughts daily and last occurred yesterday. Denies current SI. Has considered plan of hanging himself; denies that this method is readily available. Original plan to hang himself was supposed to be today. Thinking about his family stops him from killing himself. Complains of hopelessness and worthlessness. Reports past self-harm by cutting however denies past suicide attempts. Denies access to firearms. Denies past drug or alcohol treatment or abuse. Smokes marijuana every day on/off for 2 years. Drivers for use include relaxation. denies other drug use or problem. No tobacco history. Drinks 2 coffees a day. 1 past psychiatric hospitalization in [place] in September 2023. Multiple past intensive outpatient programs. Past psychiatric medications include Lexapro (currently 20 mg), mirtazapine (15 mg), clonazepam, propranolol. Reports stable childhood and denies emotional neglect, emotional/physical/sexual abuse. No history of divorce in parents. Family psychiatric history significant for Anxiety and depression in mother who takes Lexapro 10 mg. Social history: Patient lives alone in a house and has access to transportation. Can return home after discharge and has no housing concerns. Patient is a [employer] Senior studying [employer]. Currently single and not in a relationship or sexually active. Heterosexual orientation. No past marriages or children. Grew up near [place]. Mother was a teacher and father was a glue specialty supervisor. Has 2 younger siblings. Past arrests. No current legal problems. Not spiritual. Exercises regularly. Does not eat healthy. Physical Exam Mental Examination Appearance: Unkempt Eye Contact: Maintains Eye Contact Motor Behavior: Unremarkable Speech: Normal Mood: Calm Affect: Calm and Constricted Thought Process: Intact Thought Content: Intact Hallucinations: None Insight: Fair (to limited) Judgement: Fair (to limited) Vital Signs (Past 24 Hours) Last Vital Signs Temp 36.5 C 09/12/24 08:22 Pulse 66 09/12/24 08:22 Resp 18 09/12/24 08:22 BP 122/79 09/12/24 08:22 Pulse Ox 100 09/12/24 08:22 O2 Del Method Room Air 09/09/24 05:59 Principal Diagnosis Generalized anxiety disorder with panic attacks Psychiatric Data See daily stay summary. In short, safety was maintained and the patient was cooperative with care. Medication changes included continuing home escitalopram 20 mg daily, starting aripiprazole 5 mg daily, mirtazapine 7.5 mg at bedtime and they tolerated this well. A family session was held and safety plan was completed prior to discharge. patient presented with generalized anxiety disorder with panic attacks requiring escalating use of PRNs and was in an active major depressive episode. he was started on aripiprazole for anxious ruminations and SSRI augmentation and tolerated this well. He was educated about cognitive behavioral therapy and we identified multiple automatic negative thoughts. Identified his needs such as increased community and lack of so cialization, routine, increased distractions. We referred him back to his intensive outpatient program and will continue therapy. He was found to be severely deficient in vitamin D and mildly deficient in vitamin B12 and started on supplementation. He presented an improvement in anxious ruminations and quickly resolved suicidal ideation soon after admission. 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 Day of Discharge Assessment Today the patient voices readiness for discharge. They note improvement in mood and deny thoughts to harm self or others. Thoughts remain organized and they are improved from admission. There is no evidence of psychosis. They agree to take mediations as prescribed and keep follow-up appointments. They are stable for discharge to outpatient level of care. Overall, I spent a total of 40 minutes with this case including review of chart records, nursing report, review of lab work, direct evaluation of the patient at bedside, counseling the patient, multidisciplinary team meeting, orders, and documentation in the electronic health record. Transition of Care Transition Of Care Record: was reviewed with the patient Advance Directives Advance Directives Information Provided: Yes Advance Directives: No Mental Health Advance Directive: No Advance Directives on File: No Living Will: No Power of Steel Layer: No Advance Directives Reason:: Declines as Mental Health Visit. Risk Factors Assessment Male: Yes : Yes Do You Have Access To A Gun?: No Health Problems: No Mental Health Diagnoses: Yes Substance Use Disorders: No Previous Attempt: No Family History of Suicide: No Previous Psychiatric Hospitalization: Yes Hopelessness: Yes Protective Factors Assessment [facility]aritan Beliefs: No : No Responsible for Young Children: No Employed: No Stable Relationships: Yes Supportive Family: Yes Good Rapport with Provider: Yes Absence of Any Risk Factors Above: No Discharge Data Lab Results 09/09/24 09/10/24 01:00 06:52 WBC 7.54 RBC 5.21 Hgb 15.6 Hct 43.4 MCV 83.3 MCH 29.9 MCHC 35.9 RDW Std Deviation 34.5 L RDW Coeff of Umm 11.4 L Plt Count 275 MPV 10.2 Immature Gran % (Auto) 0.3 Neut % (Auto) 69.4 Lymph % (Auto) 24.0 [place] % (Auto) 4.6 Eos % (Auto) 1.2 Baso % (Auto) 0.5 Neut # (Auto) 5.23 Lymph # (Auto) 1.81 [place] # (Auto) 0.35 Eos # (Auto) 0.09 Baso # (Auto) 0.04 Immature Gran # (Auto) 0.02 Sodium 138 Potassium 3.4 L Chloride 101 Carbon Dioxide 25 Anion Gap 12 H BUN 16 Creatinine 1.20 Est Cr Clr Drug Dosing 88.3 eGFR 88.79 BUN/Creatinine Ratio 13.3 Glucose 104 H Estimat Average Glucose 91 Hemoglobin A1c 4.8 Calcium 9.7 Total Bilirubin 1.3 H AST 18 ALT 10 Alkaline Phosphatase 44 Total Protein 8.1 Albumin 5.0 Globulin 3.1 Albumin/Globulin Ratio 1.6 Triglycerides 72 Cholesterol 172 LDL Cholesterol, Calc 119 VLDL Cholesterol, Calc 14 HDL Cholesterol 39 Cholesterol/HDL Ratio 4.4 Vitamin B12 147 L 25-OH Vitamin D Total < 7.0 L TSH 1.483 Urine Color Yellow Urine Appearance Clear Urine pH 5.5 Ur Specific [place] 1.016 Urine Protein Negative Urine Glucose (UA) Negative Urine Ketones 2+ H Urine Blood Negative Urine Nitrite Negative Urine Bilirubin Negative Urine Urobilinogen Negative Ur Leukocyte Esterase Negative Urine Comment Salicylates < 3.0 L Urine Opiates Screen Neg Ur Methadone, Qual Neg Urine Fentanyl Screen Neg Acetaminophen < 3 L Urine Barbiturates Neg Ur Phencyclidine (PCP) Neg U Amphetamin/Meth Scrn Neg MDMA (Ecstasy) Screen Neg U Benzodiazepines Scrn Neg Ur Cocaine Metabolite Neg U Marijuana (THC) Screen Pos H Ethyl Alcohol mg/dL < 10.0 SARS-CoV-2, RNA, NAAT NEGATIVE Hospital Course (1) Racing thoughts: (2) Isolation (social): (3) Generalized anxiety disorder with panic attacks: (4) MDD (major depressive disorder), recurrent episode: (5) Cluster B personality disorder: (6) Vitamin D deficiency: (7) Vitamin B12 deficiency: Plan 09/11/2024: Continue medications and treatment plan. 09/10/2024: Start high dose of vitamin D 2 supplementation weekly Start vitamin D 125 mcg daily Start vitamin B12 500 mcg daily 09/09/2024:The patient was admitted to the [facility] ([facility]) on q15 min checks (behavioral with suicide precautions) for safety. The patient will participate in group, recreational, and milieu therapies and will be offered additional individual and family sessions as clinically appropriate. Start aripiprazole 5 mg at bedtime Continue home escitalopram 20 mg daily, clonazepam 0.25 mg twice daily as needed, propranolol 10 mg twice daily as needed Reduce home mirtazapine to 7.5 mg at bedtime Questionnaires: James borderline personality screener, Y-BOCS, HERACLIO-7 Labs: A1c, fasting lipid, vitamin D, vitamin B12 Mental Health & Subst Abuse Tx Psychiatrist Name of Psychiatrist: [facility] Psychiatrist's Date Of Appointment With Psychiatric Provider: 09/26/24 Time of Appointment with Psychiatrist: 3 pm Therapist Name of Therapist: Alexander De Therapist's Date of Therapist Appointment: 09/13/24 Time of Therapist Appointment: 3 pm Therapy Appointment Comment: Via Zoom consult with Alexander and then will resume IOP. Post Discharge Appointments Primary Care Physician Name Of Family Doctor/PCP: REYMUNDO Other #1: Name of Aftercare Appointment: IOP Phone Number of Aftercare Appointment: [phone] Aftercare Appointment Comment: See if can sign up for IOP as step down from inpt tx. #2: Name of Aftercare Appointment: [facility] Date of Aftercare Appointment: 09/14/24 Time of Aftercare Appointment: 1pm Aftercare Appointment Comment: Student Care will send link to [employer] email Contact Information Discharge Discharge Address: [address] [place] [address] Discharge Plan Discharge Items Patient Disposition: Home - Self-Care Reason For Visit: UNSPECIFIED DEPRESSIVE DISORDER Discharge Diagnosis: Generalized anxiety disorder with panic attacks: MDD (major depressive disorder), recurrent episode: Cluster B personality disorder: Vitamin D deficiency: Vitamin B12 deficiency: Condition on Discharge: Good Activity: Resume your previous activity Non-emergency contact: Primary Care Provider and Therapist Call non-emergency contact if: you have any medication questions and your symptoms worsen Follow-up/Referrals: PCP,NO [Primary Care Provider] - Diet: Regular Addtl Attending Provider Instructions: Continue Escitalopram 20mg daily (can be taken anytime of the day) Continue Aripiprazole 5mg daily (can be taken anytime of the day) Continue Mirtazapine 7.5mg at bedtime for sleep and appetite Continue home Propranolol and Clonazepam for symptomatic relief I have prescribed Hydroxyzine as needed for anxiety and this is a milder and safer alternative to Clonazepam Continue Vitamin D and B12 supplements and follow-up with primary care doctor in 3-4 months for blood levels Engage in on-going cognitive behavioral therapy and other forms of counseling Work on stress management and provide yourself adequate support, distractions, and community Pending Studies at Discharge: No Stand-Alone Forms: My [employer], Smoking Cessation Medications and DC Order Prescriptions: New cyanocobalamin (vitamin B-12) 500 mcg Tablet 500 mcg PO QAM Qty: 30 0RF ergocalciferol (vitamin D2) 1,250 mcg (50,000 unit) Capsule 1,250 mcg PO Q7D@0900 Qty: 8 0RF aripiprazole [Abilify] 5 mg Tablet 5 mg PO DAILY Qty: 30 0RF cholecalciferol (vitamin D3) 125 mcg (5,000 unit) Tablet 125 mcg PO QAM Qty: 30 0RF mirtazapine 7.5 mg tablet 7.5 mg PO HS Qty: 30 0RF hydroxyzine HCl 50 mg tablet 50 mg PO HSZ PRN (Reason: anxiety, insomnia) Qty: 30 0RF Continued escitalopram oxalate [Lexapro] 20 mg Tablet 20 mg PO DAILY Inderal LA 10 mg tablet 10 mg PO BID PRN (Reason: Anxiety) clonazepam 0.25 mg Tablet,Disintegrating 0.25 mg PO BID PRN (Reason: Anxiety) Rx Instructions: For use PRN after Inderal for anxiety Discontinued Remeron 15 mg 15 mg PO HS Discharge Orders: Discharge Order (Routine); Ordered 09/12/24 Ordered By: Johnnie Neville Admission Data Admit Date/Time: 09/09/24 04:20 Attending Provider: Johnnie Neville Admit Provider: Johnnie Neville Primary Care Provider: PCP,NO Other Interventions: Discharge Summary Assessment (RN) Last Done: 09/12/24 08:22 PSY Interdisciplinary Discharge Planning Last Done: 09/11/24 15:28 C[place] [address] D/C day mgmt > 30 min Patient Type Established Medical Decision Making High Complexity Diagnoses Racing thoughts R41.89 Isolation (social) Z60.4 Generalized anxiety disorder with panic attacks F41.1; F41.0 MDD (major depressive disorder), recurrent episode F33.9 Cluster B personality disorder F60.89 Vitamin D deficiency E55.9 Vitamin B12 deficiency E53.8
[2024-09-12 13:08] LABS: Marijuana Quant, GCMS Urine 144 ng/mL (<5)
== END 2024-09-12 10:38 | disposition home or self-care (01) | DRG 885 ==
LOC: ED 00:58 → 3S 04:20